=== PATIENT | male | born 1990 | race Asian ===

== ENCOUNTER 2018-10-15 11:48 | Emergency (ER) | payer MEDICAID ==
[2018-10-15] MEDS ORDERED: LIDOCAINE OINTMENT 5% 35.44 GM TUBE TOP STA (12:33)
--- NOTE | 2018-10-15 13:01 | ED Physician Documentation ---
PD HPI HEENT - Stated complaint Stated Complaint: MOUTH PX - Chief complaint Chief Complaint: Heent - History obtained from History obtained from: Patient - History of Present Illness Timing - onset: Yesterday Timing - duration: Days (2) Timing - details: Gradual onset, Still present Location: Tooth Improves: Medication Worsens: Swalllowing, Temperatures Associated symptoms: Congestion, Facial swelling, Headache Similar symptoms before: Has not had sx before Recently seen: Not recently seen - Additional information Additional information: Previously well 28-year old male has developed pain in his teeth in the upper jaw on the right side yesterday the pain has worsened he has had some drainage of pus at the edge of his teeth and he has a small lump in the roof of his mouth. The pain is excruciating. Review of Systems Constitutional: reports: Myalgias, Fatigue. denies: Fever Eyes: denies: Decreased vision Ears: denies: Ear pain Nose: reports: Congestion Throat: reports: Dental pain / toothache, Oral lesions / sores Cardiac: denies: Chest pain / pressure Respiratory: denies: Dyspnea, Cough GI: denies: Abdominal Pain PD PAST MEDICAL HISTORY - Past Medical History Past Medical History: No - Past Surgical History Past Surgical History: No - Present Medications Home Medications: Ambulatory Orders Medication Instructions Recorded Confirmed Amoxicillin 875 mg PO BID #14 tablet 10/15/18 Hydrocodone/Acetaminophen 1 - 2 each PO Q6H PRN #14 tablet 10/15/18 [Hydrocodon-Acetaminophen 5-325] - Allergies Allergies/Adverse Reactions: Allergies Allergy/AdvReac Type Severity Reaction Status Date / Time No Known Drug Allergies Allergy Verified 10/15/18 11:55 - Social History Does the pt smoke?: No Smoking Status: Never smoker Does the pt drink ETOH?: No Does the pt have substance abuse?: No - Immunizations Immunizations are current?: Yes PD ED PE NORMAL - Vitals Vital signs reviewed: Yes - General General: Alert and oriented X 3, Well developed/nourished, Other (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 The upper teeth on the right side are tender and there is not an obvious broken tooth or exposed nerve. Seems like a vertical root fracture and pus. The pus is drained from the spot on the roof of the mouth. ) - Neck Neck: Supple, no meningeal sign, No bony TTP - Respiratory Respiratory: No respiratory distress - Derm Derm: Normal color, Warm and dry, No rash - Extremities Extremities: No deformity, No edema - Neuro Neuro: Alert and oriented X 3, client support administrator 2-12 intact, No motor deficit, No sensory deficit, Normal speech Eye Opening: Spontaneous Motor: Obeys Commands Verbal: Oriented GCS Score: 15 - Psych Psych: Normal mood, Normal affect Results - Vitals Vitals: Vital Signs - 24 hr 10/15/18 11:52 Temperature 36.1 C L Heart Rate 78 Respiratory 18 Rate Blood Pressure 144/100 H O2 Saturation 98 Oxygen O2 Source Room air PD MEDICAL DECISION MAKING - ED course Complexity details: re-evaluated patient, considered differential, d/w patient ED course: 28-year-old male with dental infection has a spot on the roof of his mouth that is unroofed with a #18 needle after application of 4% lidocaine ointment. Departure - Departure Disposition: 01 Home, Self Care Clinical Impression: Dental abscess Condition: Stable Instructions: ED Abscess Dental Follow-Up: [facility] [Provider Group] Prescriptions: Amoxicillin 875 mg PO BID #14 tablet Hydrocodone/Acetaminophen [Hydrocodon-Acetaminophen 5-325] 1 - 2 each PO Q6H PRN #14 tablet PRN Reason: pain
[2018-10-15 13:12] VITALS: BP 150/104
== END 2018-10-15 13:15 | disposition home or self-care (01) ==
LOC: ED 11:48
DX: K04.7 Periapical abscess without sinus (principal)
CPT/HCPCS: 99283; A9270